=== PATIENT | male | born 1980 | race Caucasian/White ===

== ENCOUNTER → 2018-02-08 | Outpatient (CLI) | payer OTHER ==
[~2018-02-08] VITALS: Ht 188 cm; Wt 106.6 kg
[~2018-02-08] MED LIST: DAILY MULTIPLE1 EACH PO; INSULIN PUMP MC; LIPITOR40 MG PO
[2018-02-08 12:33] LABS: CHLORIDE 109 mEq/L (99-109); POTASSIUM 4.3 mEq/L (3.7-5.4); SODIUM 142 mEq/L (136-147)
[2018-02-08 12:35] LABS: GLUCOSE 160 mg/dL (70-99)
[2018-02-08 12:39] LABS: GFR ESTIMATE (CALCULATED) > 59 mL/min/ (58.99-99999)
[2018-02-08 12:40] LABS: UREA NITROGEN (BUN) 7 mg/dL (9-23)
== END | disposition home or self-care (01) ==
LOC: AMB 11:42
PROVIDERS: Internal Medicine Gastroenterology
PROC: 0DBE8ZX Excision of Large Intestine, Via Natural or Artificial Opening Endoscopic, Diagnostic (ICD-10-PCS; principal; 2018-02-08)
DX: R14.0 Abdominal distension (gaseous) (principal); K59.00 Constipation, unspecified; E10.65 Type 1 diabetes mellitus with hyperglycemia; E78.5 Hyperlipidemia, unspecified; Z96.41 Presence of insulin pump (external) (internal); E66.3 Overweight; Z68.32 Body mass index [BMI] 32.0-32.9, adult; Z87.891 Personal history of nicotine dependence; Z82.49 Family history of ischemic heart disease and other diseases of the circulatory system; Z83.3 Family history of diabetes mellitus; Z82.3 Family history of stroke
CPT/HCPCS: 80048; 82948; 88305